=== PATIENT | male | born 1965 | race Caucasian/White ===

== ENCOUNTER → 2018-06-11 | Outpatient (CLI) | payer OTHER ==
[2018-06-11 13:16] LABS: AMPHETAMINE/METHAMPHETAMINE NEG (NEG); BARBITURATES NEG (NEG); BENZODIAZEPINES POS (NEG); CANNABINOIDS NEG (NEG); COCAINE NEG (NEG); METHADONE NEG (NEG); OPIATES POS (NEG); PHENCYCLIDINE NEG (NEG)
== END | disposition home or self-care (01) ==
LOC: SURG 10:31
PROVIDERS: ATTEND Anesthesiology
DX: F11.90 Opioid use, unspecified, uncomplicated (principal)
CPT/HCPCS: 36415; 80307; 99204; G0479

== ENCOUNTER → 2018-07-16 | Outpatient (CLI) | payer OTHER ==
[~2018-07-16] MED LIST: BUPIVACAINE MPF 0.25% 30 ML VIAL. ONE; methylPREDNISolone ACETATE 40 MG/ML VIAL. ONE
== END | disposition home or self-care (01) ==
LOC: SURG 10:50
PROVIDERS: ATTEND Anesthesiology
DX: M79.1 Myalgia (principal); G47.30 Sleep apnea, unspecified; J45.909 Unspecified asthma, uncomplicated; F17.210 Nicotine dependence, cigarettes, uncomplicated; Z95.5 Presence of coronary angioplasty implant and graft; M19.90 Unspecified osteoarthritis, unspecified site; K21.9 Gastro-esophageal reflux disease without esophagitis; E11.9 Type 2 diabetes mellitus without complications; Z90.49 Acquired absence of other specified parts of digestive tract; Z98.890 Other specified postprocedural states; Z79.84 Long term (current) use of oral hypoglycemic drugs; Z79.899 Other long term (current) drug therapy
CPT/HCPCS: 20552; J1030; J3490; 20553

== ENCOUNTER → 2018-08-07 | Outpatient (CLI) | payer OTHER | END | disposition home or self-care (01) | LOC: SURG 08:35 | PROVIDERS: ATTEND Anesthesiology Pain Medicine | DX: M47.26 Other spondylosis with radiculopathy, lumbar region (principal); F11.90 Opioid use, unspecified, uncomplicated; G89.4 Chronic pain syndrome; E11.9 Type 2 diabetes mellitus without complications; K21.9 Gastro-esophageal reflux disease without esophagitis; J45.909 Unspecified asthma, uncomplicated; M19.90 Unspecified osteoarthritis, unspecified site; F17.210 Nicotine dependence, cigarettes, uncomplicated; Z90.49 Acquired absence of other specified parts of digestive tract; Z79.899 Other long term (current) drug therapy | CPT/HCPCS: 99214 ==

== ENCOUNTER 2018-08-20 04:06 | Emergency (ER) | payer OTHER ==
[~2018-08-20] VITALS: Ht 182.9 cm; Wt 113.6 kg
--- NOTE | 2018-08-20 04:14 | ED.ADGEN ---
Past History Past Medical History: Diabetes, Hypertension, Sciatica (JENIFER DE LA PAZ MD) Past Surgical History: Appendectomy (JENIFER DE LA PAZ MD) Adult General Chief Complaint Chief Complaint ".. I got this severe.. Rt. flank pain... I have chronic back pain.. and I ve gotten injections for my sciatica... and seen my chiropractor.... But this pain seems different... It seems higher and runs down my flank..." (JENIFER DE LA PAZ MD) [facility] HPI Patient is a 53 year old male who presents with above hx and complaints back pain on right flank. Patient complaining of acute onset with nausea.. Patient does have history of sciatica however it tends to be lower in the back and goes down the back of his right or left leg. Patient denies any trauma. Has recently seen his car St for his chronic back pain. No history kidney stones with him or family members. No history of colitis or Crohn's. Patient has had previous colonoscopy with normal findings. Patient has had an appendectomy. No recent travel. No history immunosuppression. Does have a cardiac history, hyperlipidemia and dysrhythmia. Patient has been compliant with his home meds. Patient denies any travel or specific ill contacts. Patient denies any problems with defecation or urination. Patient denies any trauma. Patient rates pain as 10 out of 10 at its peak. Currently rates it 6 out of 10. (JENIFER DE LA PAZ MD) Review of Systems Review of Systems Constitutional: Denies fever or chills [] Eyes: Denies change in visual acuity, redness, or eye pain [] HENT: Denies nasal congestion or sore throat [] Respiratory: Denies cough or shortness of breath [] Cardiovascular: No additional information not addressed in HPI [] GI: Complaints of right flank abdominal pain, nausea. Denies, vomiting, bloody stools or diarrhea [] : Denies dysuria or hematuria [] Musculoskeletal: Denies back pain or joint pain [] Integument: Denies rash or skin lesions [] Neurologic: Denies headache, focal weakness or sensory changes [] Endocrine: Denies polyuria or polydipsia [] All other systems were reviewed and found to be within normal limits, except as documented in this note. (JENIFER DE LA PAZ MD) Family History Family History Noncontributory (JENIFER DE LA PAZ MD) Current Medications Current Medications Current Medications Medications (Trade) Dose Ordered Sig/Maribel Start Time Stop Time Status Last Admin Dose Admin Ceftriaxone Sodium (Rocephin Im) 1 gm 1X ONCE 08/20/18 05:30 08/20/18 05:31 DC 08/20/18 05:44 1 GM Famotidine (Pepcid Vial) 20 mg 1X ONCE 08/20/18 05:00 08/20/18 05:01 DC 08/20/18 04:56 20 MG Ketorolac Tromethamine (Toradol 30mg Vial) 30 mg 1X ONCE 08/20/18 05:00 08/20/18 05:01 DC 08/20/18 04:55 30 MG Lactated Ringer's 1,000 ml @ 1,000 mls/hr Q1H 08/20/18 05:00 08/20/18 05:59 DC 08/20/18 04:54 1,000 MLS/HR Magnesium Hydroxide (Milk Of Magnesia) 2,400 mg 1X ONCE 08/20/18 06:00 08/20/18 06:01 DC 08/20/18 05:52 2,400 MG Morphine Sulfate (Morphine 10mg Syringe) 10 mg 1X ONCE 08/20/18 06:00 08/20/18 06:01 DC 08/20/18 05:57 10 MG Ondansetron HCl (Zofran) 8 mg 1X ONCE 08/20/18 05:00 08/20/18 05:01 DC 08/20/18 04:56 8 MG (MISTI CHAPMAN MD) Allergies Allergies Allergies Coded Allergies Type Severity Reaction Last Updated Verified peanut Allergy Unknown 08/20/18 Yes (MISTI CHAPMAN MD) Physical Exam Physical Exam Constitutional: in acute distress, non-toxic appearance. [] HENT: Normocephalic, atraumatic, bilateral external ears normal, oropharynx moist, no oral exudates, nose normal. [] Eyes: PERRLA, EOMI, conjunctiva normal, no discharge. [] Glasses Neck: Normal range of motion, no tenderness, supple, no stridor. [] Circumference more than 17 inches Cardiovascular: Tachycardia Heart rate regular rhythm, no murmur [] Lungs & Thorax: Bilateral breath sounds clear to auscultation [] Abdomen: Bowel sounds decreased, soft, , no masses, no pulsatile masses. Right lower appendix scar. Morbidly obese. Right flank pain Skin: Warm, diaphoretic, no erythema, no rash. [] Back: No tenderness, right CVA tenderness. [] Extremities: No tenderness, no cyanosis, no clubbing, ROM intact, ankle edema. [ ] Neurologic: Alert and oriented X 3, normal motor function, normal sensory function, no focal deficits noted. []DTRs are +2 at patella. Psychologic: Affect anxious, judgement normal, mood normal. [] (JENIFER DE LA PAZ MD) Current Patient Data Vital Signs Vital Signs Date Time Temp Pulse Resp B/P (MAP) Pulse Ox O2 Delivery O2 Flow Rate FiO2 08/20/18 06:41 82 20 105/7 (39) 97 Room Air 08/20/18 04:07 98.1 (MISTI CHAPMAN MD) Lab Results Laboratory Tests Test 08/20/18 04:11 08/20/18 04:48 Urine Collection Type Clean catch Urine Color Yellow Urine Clarity Clear Urine pH 5.5 Urine Specific [place] 1.020 Urine Protein 30 mg/dl (NEG-TRACE) Urine Glucose (UA) Neg mg/dL (NEG) Urine Ketones (Stick) Neg mg/dL (NEG) Urine Blood Neg (NEG) Urine Nitrite Neg (NEG) Urine Bilirubin Neg (NEG) Urine Urobilinogen Dipstick 0.2 mg/dL (0.2 mg/dL) Urine Leukocyte Esterase Neg (NEG) Urine RBC 0 /HPF (0-2) Urine WBC Occ /HPF (0-4) Urine Squamous Epithelial Cells Occ /LPF Urine Bacteria 0 /HPF (0-FEW) Urine Opiates Screen Pos (NEG) Urine Methadone Screen Neg (NEG) Urine Barbiturates Neg (NEG) Urine Phencyclidine Screen Neg (NEG) Urine Amphetamine/Methamphetamine Neg (NEG) Urine Benzodiazepines Screen Pos (NEG) Urine Cocaine Screen Neg (NEG) Urine Cannabinoids Screen Neg (NEG) Urine Ethyl Alcohol Neg (NEG) White Blood Count 15.8 x10^3/uL (4.0-11.0) H Red Blood Count 4.49 x10^6/uL (4.30-5.70) Hemoglobin 13.7 g/dL (13.0-17.5) Hematocrit 40.0 % (39.0-53.0) Mean Corpuscular Volume 89 fL (79-100) Mean Corpuscular Hemoglobin 30 pg (25-35) Mean Corpuscular Hemoglobin Concent 34 g/dL (31-37) Red Cell Distribution Width 13.2 % (11.5-14.5) Platelet Count 411 x10^3/uL (140-400) H Neutrophils (%) (Auto) 73 % (31-73) Lymphocytes (%) (Auto) 15 % (24-48) L Monocytes (%) (Auto) 10 % (0-9) H Eosinophils (%) (Auto) 1 % (0-3) Basophils (%) (Auto) 1 % (0-3) Neutrophils # (Auto) 11.6 x10^3uL (1.8-7.7) H Lymphocytes # (Auto) 2.4 x10^3/uL (1.0-4.8) Monocytes # (Auto) 1.5 x10^3/uL (0.0-1.1) H Eosinophils # (Auto) 0.1 x10^3/uL (0.0-0.7) Basophils # (Auto) 0.1 x10^3/uL (0.0-0.2) Segmented Neutrophils % 77 % (35-66) H Band Neutrophils % 5 % (0-9) Lymphocytes % 14 % (24-48) L Monocytes % 3 % (0-10) Basophils % 1 % (0-3) Platelet Estimate Increased (ADEQUATE) Prothrombin Time 10.8 SEC (9.4-11.4) Prothrombin Time INR 1.1 (0.9-1.1) PTT 31 SEC (23-33) Sodium Level 134 mmol/L (136-145) L Potassium Level 4.5 mmol/L (3.5-5.1) Chloride Level 98 mmol/L (98-107) Carbon Dioxide Level 30 mmol/L (21-32) Anion Gap 6 (6-14) Blood Urea Nitrogen 28 mg/dL (8-26) H Creatinine 1.0 mg/dL (0.7-1.3) Estimated GFR (Cockcroft-Gault) 77.9 Glucose Level 141 mg/dL (70-99) H Calcium Level 9.2 mg/dL (8.5-10.1) Total Bilirubin 0.3 mg/dL (0.2-1.0) Direct Bilirubin 0.1 mg/dL (0.0-0.2) Aspartate Amino Transferase (AST) 17 U/L (15-37) Alanine Aminotransferase (ALT) 30 U/L (16-63) Alkaline Phosphatase 70 U/L (46-116) Creatine Kinase 55 U/L (39-308) Troponin I Quantitative < 0.017 ng/mL (0-0.055) Total Protein 7.1 g/dL (6.4-8.2) Albumin 3.4 g/dL (3.4-5.0) Lipase 120 U/L (73-393) (MISTI CHAPMAN MD) Lab Results Laboratory Tests Test 08/20/18 04:11 08/20/18 04:48 Urine Collection Type Clean catch Urine Color Yellow Urine Clarity Clear Urine pH 5.5 Urine Specific [place] 1.020 Urine Protein 30 mg/dl (NEG-TRACE) Urine Glucose (UA) Neg mg/dL (NEG) Urine Ketones (Stick) Neg mg/dL (NEG) Urine Blood Neg (NEG) Urine Nitrite Neg (NEG) Urine Bilirubin Neg (NEG) Urine Urobilinogen Dipstick 0.2 mg/dL (0.2 mg/dL) Urine Leukocyte Esterase Neg (NEG) Urine RBC 0 /HPF (0-2) Urine WBC Occ /HPF (0-4) Urine Squamous Epithelial Cells Occ /LPF Urine Bacteria 0 /HPF (0-FEW) Urine Opiates Screen Pos (NEG) Urine Methadone Screen Neg (NEG) Urine Barbiturates Neg (NEG) Urine Phencyclidine Screen Neg (NEG) Urine Amphetamine/Methamphetamine Neg (NEG) Urine Benzodiazepines Screen Pos (NEG) Urine Cocaine Screen Neg (NEG) Urine Cannabinoids Screen Neg (NEG) Urine Ethyl Alcohol Neg (NEG) White Blood Count 15.8 x10^3/uL (4.0-11.0) H Red Blood Count 4.49 x10^6/uL (4.30-5.70) Hemoglobin 13.7 g/dL (13.0-17.5) Hematocrit 40.0 % (39.0-53.0) Mean Corpuscular Volume 89 fL (79-100) Mean Corpuscular Hemoglobin 30 pg (25-35) Mean Corpuscular Hemoglobin Concent 34 g/dL (31-37) Red Cell Distribution Width 13.2 % (11.5-14.5) Platelet Count 411 x10^3/uL (140-400) H Neutrophils (%) (Auto) 73 % (31-73) Lymphocytes (%) (Auto) 15 % (24-48) L Monocytes (%) (Auto) 10 % (0-9) H Eosinophils (%) (Auto) 1 % (0-3) Basophils (%) (Auto) 1 % (0-3) Neutrophils # (Auto) 11.6 x10^3uL (1.8-7.7) H Lymphocytes # (Auto) 2.4 x10^3/uL (1.0-4.8) Monocytes # (Auto) 1.5 x10^3/uL (0.0-1.1) H Eosinophils # (Auto) 0.1 x10^3/uL (0.0-0.7) Basophils # (Auto) 0.1 x10^3/uL (0.0-0.2) Segmented Neutrophils % 77 % (35-66) H Band Neutrophils % 5 % (0-9) Lymphocytes % 14 % (24-48) L Monocytes % 3 % (0-10) Basophils % 1 % (0-3) Platelet Estimate Increased (ADEQUATE) Prothrombin Time 10.8 SEC (9.4-11.4) Prothrombin Time INR 1.1 (0.9-1.1) PTT 31 SEC (23-33) Sodium Level 134 mmol/L (136-145) L Potassium Level 4.5 mmol/L (3.5-5.1) Chloride Level 98 mmol/L (98-107) Carbon Dioxide Level 30 mmol/L (21-32) Anion Gap 6 (6-14) Blood Urea Nitrogen 28 mg/dL (8-26) H Creatinine 1.0 mg/dL (0.7-1.3) Estimated GFR (Cockcroft-Gault) 77.9 Glucose Level 141 mg/dL (70-99) H Calcium Level 9.2 mg/dL (8.5-10.1) Total Bilirubin 0.3 mg/dL (0.2-1.0) Direct Bilirubin 0.1 mg/dL (0.0-0.2) Aspartate Amino Transferase (AST) 17 U/L (15-37) Alanine Aminotransferase (ALT) 30 U/L (16-63) Alkaline Phosphatase 70 U/L (46-116) Creatine Kinase 55 U/L (39-308) Troponin I Quantitative < 0.017 ng/mL (0-0.055) Total Protein 7.1 g/dL (6.4-8.2) Albumin 3.4 g/dL (3.4-5.0) Lipase 120 U/L (73-393) (JENIFER DE LA PAZ MD) EKG EKG My interpretation EKG shows a sinus rhythm at 93 bpm. There is some leftward axis. There is some nonspecific contour abnormalities. No findings acute STEMI with contralateral changes. Has low voltage (JENIFER DE LA PAZ MD) Radiology/Procedures Radiology/Procedures My interpretation[] of abdomen film shows no acute cardiopulmonary changes. Staple left shoulder. No free air under diaphragm. There is gas in the colon. Large amount of stool. Clips from previous surgery. CT of abdomen still pending at 601 hours- (JENIFER DE LA PAZ MD) Radiology/[place] [address] IMAGING REPORT Signed PATIENT: LAMBERT MITCHELL ACCOUNT: [id number] : 1965 LOCATION: ER AGE: 53 SEX: M EXAM STATUS: REG ER ORD. PHYSICIAN: JENIFER DE LA PAZ MD REASON: Severe right sided flank pain PROCEDURE: CT ABDOMEN PELVIS WO CONTRAST INDICATION: Severe right sided flank pain COMPARISON: None. TECHNIQUE: Axial CT images obtained through the abdomen and pelvis without contrast. Limited assessment of solid organ structures and vasculature secondary to lack of intravenous contrast. One or more of the following individualized dose reduction techniques were utilized for this examination: 1. Automated exposure control; 2. Adjustment of the mA and/or kV according to patient size; 3. Use of iterative reconstruction technique. FINDINGS: Coronary artery calcific atherosclerosis. Severe calcific atherosclerosis. Gallstones. No intrahepatic bile duct dilation. No peripancreatic fluid collection. Spleen unremarkable. No left-sided hydronephrosis. Urinary bladder is largely decompressed. No right-sided hydronephrosis. There is some dilatation of the colon identified with air and stool. Degenerative changes the spine with multilevel central canal and neural foraminal stenosis. IMPRESSION: 1. No hydronephrosis. 2. The colon appears distended with air and stool. Could be secondary to causes such as constipation or colonic ileus. 3. No definite evidence of bowel obstruction. 4. Nonspecific stranding adjacent to the bilateral kidneys. 5. Gallstones. Electronically signed by: Joaquin Paul MD (08/20/2018 6:05 AM) [facility] DICTATED AND SIGNED BY: JOAQUIN PAUL MD DATE: 08/20/18 0544 CC: KIMBERLI HORVATH MD; JENIFER DE LA PAZ MD ~ (MISTI CHAPMAN MD) Course & Med Decision Making Course & Med Decision Making Pertinent Labs and Imaging studies reviewed. (See chart for details). Discussed presentation, testing and tx. plan with Dr. Chapman- 0605. She will make disposition on pt. [] (JENIFER DE LA PAZ MD) Final Impression Final Impression 1. Abdomen pain 2. History of sciatica[] 3. Hx HTN 4. DM = `141 5. Leukocytosis- 15.8 6. Morbid Obesity 7. Constipation 8. Renal Colic- Rt. (JENIFER DE LA PAZ MD) Dragon Disclaimer Dragon Disclaimer This electronic medical record was generated, in whole or in part, using a voice recognition dictation system. (JENIFER DE LA PAZ MD) Departure Disposition: HOME, SELF-CARE (At 0637) Condition: IMPROVED Patient Instructions: Cholelithiasis, Constipation, Adult Departure: Impression: Primary Impression: Constipation Additional Impressions: Right flank pain Leukocytosis Cholelithiasis Scripts Peg 3350/Na Sulf,Bicarb,Cl/Kcl (GOLYTELY SOLUTION) 4,000 Ml Soln.recon 4000 ML PO Q1HR, #1 MISC Prov: MISTI CHAPMAN MD 08/20/18 Magnesium Citrate (MAGNESIUM CITRATE) 296 Ml Solution 296 ML PO ONCE, #296 ML Prov: MISTI CHAPMAN MD 08/20/18 JENIFER DE LA PAZ MD Aug 20, 2018 04:14 MISTI CHAPMAN MD Aug 20, 2018 06:41
--- NOTE | 2018-08-20 04:33 | EKG ---
[address] [address] Test Date: 2018-08-20 Test Time: 04:28:38 Pat Name: LAMBERT MITCHELL Department: Room: Gender: M Book Publisher: : 1965 Requested By: JENIFER DE LA PAZ Order Number: [id number] Reading MD: Apollo Dunn MD Measurements Intervals [place] Rate: 93 P: -25 ND: 200 QRS: -35 QRSD: 80 T: 54 QT: 324 QTc: 405 Interpretive Statements SINUS RHYTHM 1ST DEGREE AVB Electronically Signed On 08-20-2018 10:37:16 CDT by Apollo Dunn MD
[2018-08-20 04:47] LABS: BARBITURATES NEG (NEG); BENZODIAZEPINES POS (NEG); CANNABINOIDS NEG (NEG); COCAINE NEG (NEG); METHADONE NEG (NEG); OPIATES POS (NEG); PHENCYCLIDINE NEG (NEG)
[2018-08-20 04:48] LABS: AMPHETAMINE/METHAMPHETAMINE NEG (NEG)
[2018-08-20 04:52] LABS: BILIRUBIN,URINE NEG (NEG); CLARITY,URINE CLEAR; COLOR,URINE YELLOW; GLUCOSE,URINE NEG (NEG); NITRITE,URINE NEG (NEG); UROBILINOGEN,URINE 0.2 mg/dL (0.2 mg/dL)
[2018-08-20 04:53] LABS: BACTERIA,URINE 0 /HPF (0-FEW); RBC,URINE 0 /HPF (0-2); SQUAMOUS EPITHELIAL CELL,UR OCC /LPF; WBC,URINE OCC /HPF (0-4)
[2018-08-20] MEDS ORDERED: FAMOTIDINE 20 MG/2 ML VIAL IVP ONE (05:00)
[2018-08-20] MEDS ORDERED: KETOROLAC 30 MG/ML VIAL. IV ONE (05:00)
[2018-08-20] MEDS ORDERED: IV RINGERS SOLUTION,LACTATED 1,000 ML IV SCH (05:00)
[2018-08-20] MEDS ORDERED: ONDANSETRON PF 4 MG/2 ML VIAL. IV ONE (05:00)
[2018-08-20 05:08] LABS: BASO # 0.1 x10^3/uL (0.0-0.2); BASO % 1 % (0-3); EOS # 0.1 x10^3/uL (0.0-0.7); EOS % 1 % (0-3); HEMOGLOBIN 13.7 g/dL (13.0-17.5); LYMPH # 2.4 x10^3/uL (1.0-4.8); LYMPH % 15 % (24-48); MEAN CORPUSCULAR HEMOGLOBIN 30 pg (25-35); MEAN CORPUSCULAR HGB CONC 34 g/dL (31-37); MEAN CORPUSCULAR VOLUME 89 fL (79-100); MONO # 1.5 x10^3/uL (0.0-1.1); MONO % 10 % (0-9); NEUT # 11.6 x10^3uL (1.8-7.7); NEUT % 73 % (31-73); PLATELET COUNT 411 x10^3/uL (140-400); RED BLOOD COUNT 4.49 x10^6/uL (4.30-5.70); RED CELL DISTRIBUTION WIDTH 13.2 % (11.5-14.5); WHITE BLOOD COUNT 15.8 x10^3/uL (4.0-11.0)
[2018-08-20 05:25] LABS: ALBUMIN 3.4 g/dL (3.4-5.0); CALCIUM 9.2 mg/dL (8.5-10.1); DIRECT BILIRUBIN 0.1 mg/dL (0.0-0.2); GFR 77.9; POTASSIUM 4.5 mmol/L (3.5-5.1); TOTAL BILIRUBIN 0.3 mg/dL (0.2-1.0); TOTAL PROTEIN 7.1 g/dL (6.4-8.2)
[2018-08-20] MEDS ORDERED: cefTRIAXone IM 1 GM VIAL IM ONE (05:30)
[2018-08-20 05:37] LABS: % BANDS 5 % (0-9); % BASOS 1 % (0-3); % LYMPHS 14 % (24-48); % MONOS 3 % (0-10); % SEGS 77 % (35-66); PLT ESTIMATE INCREASED (ADEQUATE)
[2018-08-20] MEDS ORDERED: MAGNESIUM HYDROXIDE 2,400 MG/30 ML ORAL.SUSP. PO ONE (06:00)
[2018-08-20] MEDS ORDERED: MORPHINE SULFATE 10 MG/ML SYRINGE. SQ ONE (06:00)
--- NOTE | 2018-08-20 06:09 | RAD ---
INDICATION: Severe right sided flank pain COMPARISON: None. TECHNIQUE: Axial CT images obtained through the abdomen and pelvis without contrast. Limited assessment of solid organ structures and vasculature secondary to lack of intravenous contrast. One or more of the following individualized dose reduction techniques were utilized for this examination: 1. Automated exposure control; 2. Adjustment of the mA and/or kV according to patient size; 3. Use of iterative reconstruction technique. FINDINGS: Coronary artery calcific atherosclerosis. Severe calcific atherosclerosis. Gallstones. No intrahepatic bile duct dilation. No peripancreatic fluid collection. Spleen unremarkable. No left-sided hydronephrosis. Urinary bladder is largely decompressed. No right-sided hydronephrosis. There is some dilatation of the colon identified with air and stool. Degenerative changes the spine with multilevel central canal and neural foraminal stenosis. IMPRESSION: 1. No hydronephrosis. 2. The colon appears distended with air and stool. Could be secondary to causes such as constipation or colonic ileus. 3. No definite evidence of bowel obstruction. 4. Nonspecific stranding adjacent to the bilateral kidneys. 5. Gallstones. Electronically signed by: Ajit Paul MD (08/20/2018 6:05 AM) [facility]
[2018-08-20] MEDS ORDERED: PEG4000S8 PO (06:40)
[2018-08-20] MEDS ORDERED: MAGN296S9 PO (06:40)
[2018-08-20 06:56] VITALS: BP 115/68
--- NOTE | 2018-08-20 07:42 | RAD ---
Acute abdomen series with chest, 3 views, 08/20/2018: HISTORY: Severe right flank pain There is a moderate amount stool in the cecum and ascending colon. A moderate amount of gas is present in the transverse colon. The abdominal gas pattern is otherwise unremarkable. No free air seen in the abdomen. There is no evidence organomegaly. A lower pelvic calcification on the right is likely a phlebolith. The heart size is normal. The lungs are clear. There is no evidence of pleural fluid. IMPRESSION: Increased stool in the right colon. Electronically signed by: Huseyin Baumann MD (08/20/2018 7:38 AM) [facility]
== END 2018-08-20 06:56 | disposition home or self-care (01) ==
LOC: ER 04:06
DX: K80.20 Calculus of gallbladder without cholecystitis without obstruction (principal); D72.829 Elevated white blood cell count, unspecified; N23 Unspecified renal colic; K59.00 Constipation, unspecified; G89.29 Other chronic pain; M54.89 Other dorsalgia; E66.01 Morbid (severe) obesity due to excess calories; E11.8 Type 2 diabetes mellitus with unspecified complications; I10 Essential (primary) hypertension; Z68.34 Body mass index [BMI] 34.0-34.9, adult; Z90.89 Acquired absence of other organs; Z91.010 Allergy to peanuts
CPT/HCPCS: 36415; 74022; 74176; 80048; 80076; 80307; 81001; 82550; 83690; 84484; 85007; 85025; 85610; 85730; 93005; 96372; 96374; 96375; 99285; J0696; J1885; J2270; J2405; J7120; S0028; 96361; G0479

== ENCOUNTER → 2018-09-03 | Outpatient (CLI) | payer OTHER ==
[2018-08-20 06:56] VITALS: BP 115/68
[~2018-09-03] MED LIST changes: -BUPIVACAINE MPF 0.25% 30 ML VIAL. ONE; +MAGN296S9 PO; +PEG4000S8 PO; -methylPREDNISolone ACETATE 40 MG/ML VIAL. ONE
== END | disposition home or self-care (01) ==
LOC: SURG 11:13
PROVIDERS: ATTEND Anesthesiology
DX: M47.26 Other spondylosis with radiculopathy, lumbar region (principal); F11.90 Opioid use, unspecified, uncomplicated; J45.909 Unspecified asthma, uncomplicated; G47.39 Other sleep apnea; E11.9 Type 2 diabetes mellitus without complications; I50.89 Other heart failure; F17.210 Nicotine dependence, cigarettes, uncomplicated
CPT/HCPCS: 99214